=== PATIENT | female | born 1970 | race American Indian/Alaskan Native ===

== ENCOUNTER 2018-05-08 18:24 | Emergency (ER) | payer MEDICAID ==
[2018-05-08 19:46] VITALS: RESP 18; TEMP 97.7; BMI 31.9
--- NOTE | 2018-05-08 20:19 | ED PDOC ---
Arrival/HPI - General Chief Complaint: Lower Extremity Problem/Injury Time Seen by Provider: 05/08/18 20:11 Historian: Patient - History of Present Illness Narrative History of Present Illness (Text): 05/08/18 20:12 A 48 year old female with no significant past medical history presents to the emergency department for wound check status post right foot surgery earlier this morning. Patient reports she underwent a right foot surgery 7 am this morning for removal of a bunion on her great to and re-alignment of 2nd and 3rd toe. Patient states she is concerned by excessive amount of bleeding in post surgical wrapping. Patient requests change of dressing for her right foot. Patient denies any fever, chills, chest pain, shortness of breath, nausea, vomiting, diarrhea, urinary symptoms, back pain, neck pain, headache, dizziness , or any other complaints. Time/Duration: Other (earlier today ) Symptom Course: Unchanged Activities at Onset: Light Context: Home Past Medical History - Provider Review Nursing Documentation Reviewed: Yes - Endocrine/Metabolic Hx Diabetes Mellitus Type 2: Yes - Psychiatric Hx Substance Use: No - Surgical History Other/Comment: Rt foot bunion sx 05/08/18 - Anesthesia Hx Anesthesia: Yes Family/Social History - Physician Review Nursing Documentation Reviewed: Yes Family/Social History: Unknown Family HX Smoking Status: Never Smoked Hx Alcohol Use: No Hx Substance Use: No Review of Systems - Physician Review All systems were reviewed & negative as marked: Yes - Review of Systems Constitutional: absent: Fevers, Night Sweats Respiratory: absent: SOB Cardiovascular: absent: Chest Pain Gastrointestinal: absent: Diarrhea, Nausea, Vomiting Genitourinary Female: absent: Urine Output Changes Musculoskeletal: absent: Back Pain, Neck Pain Neurological: absent: Headache, Dizziness Physical Exam Vital Signs Reviewed: Yes Vital Signs Temp Pulse Resp BP Pulse Ox 05/08/18 21:05 97.7 F 61 18 135/74 100 05/08/18 18:25 97.7 F 60 18 138/76 99 Temperature: Afebrile Blood Pressure: Normal Pulse: Regular Respiratory Rate: Normal Appearance: Positive for: Well-Appearing, Non-Toxic, Comfortable Pain Distress: None Mental Status: Positive for: Alert and Oriented X 3 - Systems Exam Head: Present: Atraumatic, Normocephalic Pupils: Present: PERRL Extroacular Muscles: Present: EOMI Conjunctiva: Present: Normal Mouth: Present: Moist Mucous Membranes Neck: Present: Normal Range of Motion Respiratory/Chest: Present: Clear to Auscultation, Good Air Exchange. No: Respiratory Distress, Accessory Muscle Use Cardiovascular: Present: Regular Rate and Rhythm, Normal S1, S2. No: Murmurs Abdomen: No: Tenderness, Distention, Peritoneal Signs Back: Present: Normal Inspection Upper Extremity: Present: Normal Inspection. No: Cyanosis, Edema Lower Extremity: Present: Normal ROM (wound has minimal bleeding), Other (- appears to be no sutures in place on the great toe ). No: Normal Inspection (- surgical post op suture on 2nd and 3rd toe; clean, dry, and well approximated), Edema, CALF TENDERNESS, NORMAL PULSES, Cyanosis, Mary's Sign, Tenderness, Swelling, Erythema, Deformity, Temperature Abnormalties, Neurovascularly Intact , Capillary Refill < 2 s Neurological: Present: GCS=15, CN II-XII Intact, Speech Normal Skin: Present: Warm, Dry, Normal Color. No: Rashes Psychiatric: Present: Alert, Oriented x 3, Normal Insight, Normal Concentration Medical Decision Making ED Course and Treatment: 05/08/18 20:20 Impression: 48 year old female presenting to the emergency room for wound check status post right foot surgery. Plan: -- Redress wound -- Reassess and disposition Prior Visits: Notes and results from previous visits were reviewed. Progress Notes: 05/08/18 20:15 I undressed wound to visualize and rewrapped in similar fashion as initially found with non stick gauze, vaseine gauze, cobain wrap and skyla wrap. Patient was then discharged with instruction to follow up with foot surgeon as soon as possible. - Scribe Statement The provider has reviewed the documentation as recorded by the Moises Brown All medical record entries made by the Scribe were at my direction and personally dictated by me. I have reviewed the chart and agree that the record accurately reflects my personal performance of the history, physical exam, medical decision making, and the department course for this patient. I have also personally directed, reviewed, and agree with the discharge instructions and disposition. Disposition/Present on Arrival - Present on Arrival Any Indicators Present on Arrival: No History of DVT/PE: No History of Uncontrolled Diabetes: No Urinary Catheter: No History of Decub. Ulcer: No History Surgical Site Infection Following: None - Disposition Have Diagnosis and Disposition been Completed?: Yes Diagnosis: Postoperative hemorrhage from incision Disposition: HOME/ ROUTINE Disposition Time: 07:17 Condition: STABLE Discharge Instructions (ExitCare): Surgical Wound (DC) Print Language: MONEGAS[place] Additional Instructions: Follow up with your surgeon as soon as possible, preferably tomorrow. Return for any problems or concerns. ROCIO MARTINEZ, thank you for letting us take care of you today. Your provider was Dr. Kam Monson and you were treated for WOUND CHECK. The emergency medical care you received today was directed at your acute symptoms. If you were prescribed any medication, please fill it and take as directed. It may take several days for your symptoms to resolve. Return to the Emergency Department if your symptoms worsen, do not improve, or if you have any other problems. Please contact your doctor or call one of the physicians/clinics you have been referred to that are listed on the Patient Visit Information form that is included in your discharge packet. Bring any paperwork you were given at discharge with you along with any medications you are taking to your follow up visit. Our treatment cannot replace ongoing medical care by a primary care provider outside of the emergency department. Thank you for allowing the [email or web address] team to be part of your care today. If you had an X-Ray or CT scan: A Radiologist will review the ED reading if any change in treatment is needed we will contact you. If you had a blood, urine, or wound culture: It will take several days for the results, if any change in treatment is needed we will contact you. If you had an STI test: It will take 48 hours for the results. Please call after 1 week if you have not heard back. Forms: [facility] ([place]ican)
[2018-05-08 21:05] VITALS: BP 135/74; PULSE 61; O2SAT 100
== END 2018-05-08 21:05 | disposition home or self-care (01) ==
LOC: MERGE 18:24 → ED 18:24
DX: L76.22 Postprocedural hemorrhage of skin and subcutaneous tissue following other procedure (principal); E11.9 Type 2 diabetes mellitus without complications